=== PATIENT | male | born 1945 | race African-American/Black ===

== ENCOUNTER 2017-07-30 17:33 | Emergency (ER) | payer OTHER ==
[~2017-07-30] VITALS: Ht 188 cm; Wt 122.5 kg
[2017-07-30 17:35] VITALS: BP_SYST 175
[2017-07-30] MEDS ORDERED: HYDROcodone/ACETAMIN 10-325 MG TAB PO ONE (19:15)
[2017-07-30 20:00] VITALS: BP_SYST 156
== END 2017-07-30 20:00 | disposition home or self-care (01) ==
LOC: SED 17:33
DX: S20.211A Contusion of right front wall of thorax, initial encounter (principal); I10 Essential (primary) hypertension; W22.8XXA Striking against or struck by other objects, initial encounter; Y93.89 Activity, other specified; Y92.814 Boat as the place of occurrence of the external cause; Y99.8 Other external cause status
CPT/HCPCS: 71100; 99284